=== PATIENT | female | born 2000 | race Hispanic/Latino ===

== ENCOUNTER 2019-01-29 20:14 | Emergency (ER) | payer SELFPAY, OTHER ==
[2019-01-29] MEDS ORDERED: Ketorolac Tromethamine 30 MG/ML VIAL ONE (21:38)
== END 2019-01-29 21:57 | disposition home or self-care (01) ==
LOC: ERS 20:14
DX: J06.9 Acute upper respiratory infection, unspecified (principal); R07.81 Pleurodynia; F32.9 Major depressive disorder, single episode, unspecified; F41.9 Anxiety disorder, unspecified
CPT/HCPCS: 96374; J1885